=== PATIENT | male | born 1970 | race Caucasian/White ===

== ENCOUNTER 2017-08-30 09:06 | Emergency (ER) | payer OTHER, SELFPAY ==
[2017-08-30 09:07] VITALS: BP 148/97; PULSE 78; RESP 16; TEMP 37; O2SAT 95; BMI 31.1
--- NOTE | 2017-08-30 09:22 | RAD_ITS ---
STUDY: X-RAY - PELVIS AND LEFT HIP REASON FOR EXAM: Male, 46 years old. Left hip pain and left groin pain. TECHNIQUE: Radiological exam, hip, unilateral, with pelvis when performed; 2 or 3 views. COMPARISON: None. FINDINGS: There is a non-specific bowel gas pattern. Normal visualized soft tissue structures. Normal bilateral iliac wings, sacroiliac joints and visualized sacrum. Normal bilateral superior and inferior pubic rami. Normal pubic symphysis. Normal bilateral ischial tuberosities. Normal visualized femoral head. There is osteoarthritic spur formation of the acetabular rim. There is mild articular joint space narrowing of the hip. RAD/Hip 2-3 Views with Pelvis IMPRESSION: Mild degree of osteoarthritis of the hip joints bilaterally. Electronically Signed: Eric Lazo MD at 11:11 EST Tel [phone], Service support ,
--- NOTE | 2017-08-30 09:23 | US_ITS ---
STUDY: SCROTUM ULTRASOUND REASON FOR EXAM: Male, 46 years old. Left testicular and left groin pain. TECHNIQUE: Ultrasound evaluation of the scrotum was performed with color Doppler and static white-scale imaging. COMPARISON: None. FINDINGS: RIGHT TESTICLE INTRATESTICULAR: There is a normal size of the right testicle. The right testicle measures 4.2 cm x 3.2 cm x 2.3 cm. There is a homogenous echotexture. There is normal arterial and normal venous vascularity. There is no demonstrated right testicular mass or cyst. EXTRATESTICULAR: The epididymis is normal in size. The epididymis head measures 0.9 cm x 0.9 cm x 1.0 cm. There is normal vascularity of the epididymis. There is a well-defined cystic structure within the epididymis, without internal echoes, consistent with an epididymal cyst. This measures 4 mm x 3 mm x 2 mm. There is no demonstrated hydrocele. There is no demonstrated varicocele. There is no demonstrated extratesticular mass or cyst. LEFT TESTICLE INTRATESTICULAR: There is a normal size of the left testicle. The left testicle measures 4.3 cm x 3.1 cm x 2.3 cm. There is a homogenous echotexture. There is normal arterial and normal venous vascularity. There is no demonstrated left testicular mass or cyst. EXTRATESTICULAR: The epididymis is normal in size. The epididymis head measures 1.1 cm x 1.0 cm x 0.9 cm. There is normal vascularity of the epididymis. There is a well-defined cystic structure within the epididymis, without internal echoes, consistent with an epididymal cyst. This measures 4 mm x 3 mm x 3 mm. There is a small hydrocele. There is no demonstrated varicocele. There is no demonstrated extratesticular mass or cyst. US/Testicular with Arterial Flow IMPRESSION: Small bilateral epididymal cysts. Small left hydrocele. Electronically Signed: Eric Lazo MD at 10:46 EST Tel [phone], Service support ,
--- NOTE | 2017-08-30 09:26 | ED.VISSUMM ---
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 He did not fall he has no history of hip pelvic bone element no elements. Does report he seems to be urinating more frequently this occurred, he had no direct trauma he has no history other than report years ago he had a stone in his kidney. He has no back pain nausea vomiting or fever he points directly to his left groin inguinal crease he has not noticed any bulging of fullness the pain seems to improve when he rests his bowel and bladder habits otherwise unremarkable Physical Examination: [] Signs are unremarkable neck chest unremarkable the abdomen soft nontender the left groin he has some very mild pain to the left groin there is no obvious hernia the scrotum is not tender he complains that however the pain from the groin shoots into the left scrotum by palpation of the scrotum shows no areas of tenderness fullness or mass no obvious signs of torsion or infection the scrotal sac is unremarkable to inspection and palpation as of the testicles, again no hernia the back is unremarkable he has full range of motion of the hip knee ankle and foot he is able to walk and has some discomfort when he walks in the left inguinal groin area and again most of his pain is directly over the left inguinal crease The patient's UA is generally unremarkable dip hematuria no red cells, x-ray of the pelvis is unremarkable, scrotal ultrasound are unremarkable for any acute issues see those reports Thank the patient that the exact etiology of the groin pain is unclear it clearly began when he jolted his leg stepping off the curb as above, he will be started on Naprosyn, he is given a referral to orthopedics, [place] [facility] for further follow-up and return for change in symptoms, he understands he will require definitive outpatient management to diagnose and manage his condition Test Results: [] Emergency Department Course and Treatment: [] Treatment Plan: [] Disposition: [] Stable home Impression: [] Left groin pain after near fall This note was generated with Dragon dictation software. It may contain incorrect words, spelling, and punctuation that were not noted in review of the chart prior to signing ED Disposition - Plan for ED Patient: Chief Complaint: Male Pain/Injury Referrals: Care Physician,No Primary [Primary Care Provider] -
[2017-08-30 09:49] LABS: Mucous, Urine 0 SEEN /hpf (<or=2+); Red Blood Cells-Urine 0 SEEN /hpf (0-5); Squamous Epithelial Cells - UA 0 SEEN /hpf (0-5); White Blood Cells 0 SEEN /hpf (0-5)
[2017-08-30 09:53] LABS: Color, Urine Yellow (Yellow); Glucose, Dipstick Normal (Normal); Ketone-Dipstick Negative (Negative); Leukocyte Esterase-Dipstick Negative /ul (Negative); Nitrite-Dipstick Negative (Negative); Occult Blood-Urine 25 /ul (Negative); Protein-Dipstick Negative (Negative); Urine Bilirubin Dipstick Negative (Negative); Urine Clarity Clear (Clear); Urine Urobilinogen Normal (Normal)
[2017-08-30 10:03] LABS: Bacteria RARE /hpf (None Seen)
--- NOTE | 2017-08-30 11:17 | ED.DEP ---
ED Disposition - Plan for ED Patient: Chief Complaint: Male Pain/Injury Instructions: ED Hernia Inguinal, ED Muscle Pain Leg Cramps Prescriptions: Naproxen [Naprosyn] 500 mg PO BID PRN #20 tab Referrals: Care Physician,No Primary [Primary Care Provider] - Prabha Regan MD [COURTESY STAFF PHYSICIAN] - Adiel Thomason DO [STAFF PHYSICIAN] -
[2017-08-30 11:22] VITALS: BP 140/93; PULSE 66; RESP 18; O2SAT 95
--- NOTE | 2017-08-30 11:29 | ED.DEP ---
ED Disposition - Plan for ED Patient: Chief Complaint: Male Pain/Injury Instructions: ED Hernia Inguinal, ED Muscle Pain Leg Cramps Prescriptions: Naproxen [Naprosyn] 500 mg PO BID PRN #20 tab Potassium Chloride [K-Dur] 10 meq PO BID #60 tab Referrals: Adiel Thomason DO [STAFF PHYSICIAN] - Prabha Regan MD [COURTESY STAFF PHYSICIAN] - Care Physician,No Primary [Primary Care Provider] -
[2017-08-30 11:40] VITALS: BP 140/93; PULSE 66; RESP 18
== END 2017-08-30 11:40 | disposition home or self-care (01) ==
PROVIDERS: Emergency Provider Emergency Medicine
DX: R10.32 Left lower quadrant pain (principal)
CPT/HCPCS: 73502; 76870; 81001; 93976; 99283

== ENCOUNTER 2017-12-17 23:59 | Observation (INO) | payer OTHER, SELFPAY ==
[2017-12-18] VITALS: BP 153/82; PULSE 77; RESP 15; TEMP 36.6; BMI 30.8
--- NOTE | 2017-12-18 00:15 | CT_ITS ---
STUDY: CT ABDOMEN AND PELVIS WITH CONTRAST REASON FOR EXAM: Male, 47 years old. Abdominal pain. History of Crohn's disease. RADIATION DOSAGE (If Supplied By Facility): CTDIvol = ( 15.57 ) mGy, DLP = ( 1208.64 ) mGycm TECHNIQUE: Transaxial images were obtained from the dome of the diaphragm to the symphysis pubis without oral contrast. 100 ml of Isovue 300 contrast was administered. Sagittal and coronal images were reconstructed. Individualized dose optimization techniques were used for this CT. COMPARISON: None. FINDINGS: The lung bases are clear. The liver is normal with no dilated intrahepatic biliary radicles. The gallbladder is normal with no gallstones and no pericholecystic fluid collection or streakiness. The spleen, pancreas and both adrenals are normal. The kidneys are normal with no masses, calculi or hydronephrosis. The stomach is normal. There is a previous surgery in the right lower quadrant with resection of the cecum and portions of the ascending colon. There is narrowing of the ileocolic anastomosis with subsequent distention of small bowel. The obstruction looks partial. Similar findings were observed in the last examination of August 16, 2013. The abdominal wall is intact. There is no ascites, free intraperitoneal air or any evidence of epiploic appendagitis. The vascular structures in the retroperitoneum are normal The bones and joints seen are normal with no osteolytic or osteoblastic changes There is no retrocrural, retroperitoneal or mesenteric adenopathy. There is no mesenteric mistiness The urinary bladder is normal.. The prostate is normal. There is no inguinal or pelvic adenopathy and there is no inguinal hernia . CT/Abdomen/Pelvis WITH Contrast IMPRESSION: A partial small bowel obstruction with a change in caliber of small bowel in the right lower quadrant at an ileocolic anastomotic site. Similar findings were seen in the last examination of August 18, 2013 No acute diverticulitis Electronically Signed: Vincent Fernando, at 3:39 EDT Tel , Service support ,
[2017-12-18] MEDS: 0.9% Normal Saline 1,000 ML 125 ML IV ×2 (00:50→06:19)
[2017-12-18] MEDS: Morphine 4 MG/ML Syringe IV ×2 (00:55→06:19)
[2017-12-18] MEDS: Ondansetron 4 MG/2 ML Vial IV (00:55)
[2017-12-18 01:04] LABS: Absolute Lymphocyte Count 1.95 X10^3/ul (0.83-4.51); Basophil# 0.02 X10^3/uL; Basophil% 0.1 % (0-1); Eosinophil# 0.07 X10^3/uL; Eosinophils% 0.5 % (0-5); Hematocrit 44.5 % (40-54); Hemoglobin 15.6 g/dl (13.0-16.5); Lymphocyte # 1.95 X10^3/ul (4.0); Lymphocyte % 13.2 % (19-41); Mean Corp Hgb Conc 35.1 g/gl (32-36); Mean Corpuscular Hgb 30.5 pg (27.0-32.0); Mean Corpuscular Volume 86.9 fL (80-94); Mean Platelet Vol. 8.9 fl (6.2-12.0); Monocyte# 0.77 X10^3/uL; Monocyte% 5.2 % (0-10); Neutrophil # 11.96 X10^3/uL (2.7-7.7); Neutrophil % 80.8 % (47-70); Platelet Count 262 K/mm3 (150-450); RBC Distribution Width CV 13.2 % (11.6-14.6); RBC Distribution Width SD 41.9 fl (35.1-43.9); Red Blood Count 5.12 M/mm3 (4.6-6.2); White Blood Count 14.8 K/mm3 (4.4-11.0)
[2017-12-18 01:07] LABS: POSITIVE COUNT NO; POSITIVE DIFFERENTIAL NO; POSITIVE MORPHOLOGY NO
[2017-12-18 01:19] LABS: AST(SGOT) 16 U/L (15-37); Alanine Aminotransfer ALT/SGPT 25 U/L (16-61); Albumin, Serum 3.9 g/dL (3.2-5.0); Alkaline Phosphatase 78 U/L (45-117); Anion Gap 8 (5-15); BUN 10 mg/dL (7-18); BUN/Creat Ratio 9.9 RATIO (10-20); Calcium,Total 9.1 mg/dL (8.5-10.1); Chloride 106 mmol/L (98-107); Creatinine, Serum 1.01 mg/dL (0.70-1.30); EST Glomerular Filtration Rate 84 mL/min (>60); Est Glom Filt Rate - Afr Amer 102 mL/min (>60); Estimated Creatinine Clearance 93.36 ml/min; Globulin 3.9 g/dL (2.2-4.2); Glucose 113 mg/dL (74-106); Lipase 91 U/L (73-393); Potassium 3.8 mmol/L (3.5-5.1); Protein, Total 7.8 g/dL (6.4-8.2); Sodium Level 140 mmol/L (136-145)
[2017-12-18 01:45] VITALS: BP 135/86; PULSE 77; RESP 16; O2SAT 95
[2017-12-18] MEDS: HYDROmorphone 1 MG/ML Syringe IV ×2 (01:51→07:29)
[2017-12-18 01:56] LABS: Bacteria 0 SEEN /hpf (None Seen); Mucous, Urine 0 SEEN /hpf (<or=2+); Red Blood Cells-Urine 0 SEEN /hpf (0-5); Squamous Epithelial Cells - UA 0 SEEN /hpf (0-5); White Blood Cells 0 SEEN /hpf (0-5)
[2017-12-18 02:06] LABS: Color, Urine Yellow (Yellow); Glucose, Dipstick Normal (Normal); Ketone-Dipstick Negative (Negative); Leukocyte Esterase-Dipstick Negative /ul (Negative); Nitrite-Dipstick Negative (Negative); Occult Blood-Urine 10 /ul (Negative); Protein-Dipstick Negative (Negative); Urine Bilirubin Dipstick Negative (Negative); Urine Clarity Clear (Clear); Urine Urobilinogen Normal (Normal)
--- NOTE | 2017-12-18 03:56 | ED.DCSUM_ITS ---
- ER Visit Summary Date of Service: 12/18/17 Chief Complaint: [Abdominal pain] History of Present Illness: The patient is a 47 M [presents with abdominal pain that started around 5 hours ago. Patient describes it as right-sided and he has had 3 episodes of vomiting. Patient denies any blood in his stool or black tarry stool. Patient denies urinary symptoms. Patient believes he is having a flareup of his Crohn's disease. His last flareup was about a year ago. Patient denies any fevers.] Physical Examination: [HEENT-PERRLA, EOMI. Cranial nerves II through XII grossly intact. TMs clear. Mucous membranes moist. No adenopathy. Cardiovascular-regular rate and rhythm without murmur or ectopy Lungs-clear to auscultation, chest wall stable without crepitus or subcu emphysema Abdomen-normoactive bowel sounds, soft. Patient has tenderness over the right side of the abdomen diffusely. There is no rebound, rigidity, or perineal signs. Extremities-intact ?4, normal range of motion, normal pulses, atraumatic] Test Results: [CBC with differential obtained showed a white blood cell count of 14.8, hemoglobin 15.6, hematocrit 44, platelets 262. Chemistries unremarkable. Total bilirubin was 1.3. Lipase was 91. Urinalysis was unremarkable. CT scan of the abdomen pelvis showed a partial small bowel obstruction with change in caliber of small bowel in the right lower quadrant at the ileocolic anastomotic site similar findings were seen in the last exam of July 2013] Emergency Department Course and Treatment: [Patient was medicated with Dilaudid and Zofran IV and patient was discussed with hospitalist will evaluate patient for admission] Treatment Plan: [Admit for IV fluids and pain control] Disposition: [Admit] Impression: [Abdominal pain Partial small bowel obstruction] This note was generated with [employer] dictation software. It may contain incorrect words, spelling, and punctuation that were not noted in review of the chart prior to signing ED Disposition - Plan for ED Patient: Chief Complaint: Abd Pain Referrals: Raul Cox III, MD [Primary Care Provider] -
[2017-12-18 03:59] VITALS: BP 126/83; PULSE 77; RESP 16; TEMP 36.6; O2SAT 95
[2017-12-18 04:06] VITALS: BP 126/83; PULSE 77; RESP 16; O2SAT 95
[2017-12-18 04:24] VITALS: BMI 31.2
[2017-12-18 04:48] VITALS: BP 125/76; PULSE 70; RESP 18; TEMP 36.6; O2SAT 95
--- NOTE | 2017-12-18 05:35 | PCM.HP.STD ---
Problem List (1) SBO (small bowel obstruction) Status: Acute (2) Diverticulitis Status: Acute (3) Crohn's disease of small and large intestines Status: Chronic (4) HTN (hypertension) Status: Chronic History of Present Illness Date of Admission: 12/18/17 Chief Complaint: Partial small bowel obstruction The patient is a 47 year old male w/ h/o crohn's disease admitted for SBO. He developed sudden right sided abdominal pain 5 hours ago. Pain was constant and dull-aching / crampy pain. Nothing made it better or worse. Pain was severe. No radiation of pain. Pain was not associated with any other symptoms. Pt had 3 episodes of n/v which improved by the time pt arrived in the ED. No blood stool. No fever, tachycardia, abdominal tenderness, and no signs or symptoms of obstruction. Past Medical History Past Medical History (Chronic Problems): Chronic Problems HTN (hypertension) (Chronic) Crohn's disease of small and large intestines (Chronic) Allergies prednisone Allergy (Verified 12/18/17 00:02) Vomiting diphenhydramine HCl [From Benadryl] Adverse Reaction (Verified 12/18/17 00:02) Other Home Medications: Ambulatory Orders Medication Instructions Recorded Diltiazem HCl [Cartia Xt] 240 mg PO DAILY 12/18/17 Potassium Chloride 10 meq PO BID 12/18/17 Sertraline HCl [Zoloft] 50 mg PO DAILY 12/18/17 Surgical History: - - Small bowel resection Psychiatric History: No pertinent psych hx Lives: Alone Smoking Status: Never smoker Alcohol: None Drugs: None - *Family History Maternal History Items: No pertinent history Review of Systems Constitutional: Denies: Chills, Fever, Weight Change HEENT: Denies: Head Aches, Sinus Congestion, Sinus Drainage Cardiovascular: Denies: Chest Pain, Palpitations Respiratory: Denies: Cough, Shortness of breath at rest, Sputum production Gastrointestinal: Reports: Abdominal Pain, Nausea, Vomiting Genitourinary: Denies: Dysuria Musculoskeletal: Denies: Joint Pain, Joint Tenderness Skin: Denies: Rash, Wounds Neurological: Denies: Numbness, Tingling, Focal weakness Psychiatric: Denies: Anxiety, Depression, Homicidal Ideations, Suicidal Ideations Hematologic/ Lymphatic: Denies: Easy Bruising, Easy Bleeding VTE Information - Inpt Only VTE Present on Admission: No VTE Mechan Device Prophylaxis: SCD's VTE Pharm Prophylaxis ordered?: Yes Patient Problems: Active and Suspected Problems SBO (small bowel obstruction) (Acute) - Physical Exam General: Alert, Oriented x3, Cooperative HEENT: Atraumatic, PERRLA, EOMI, Normocephalic Neck: Supple, No JVD, Negative Carotid Bruits Lungs: Clear to auscultation, Normal air movement Cardiovascular: Regular rate, No murmurs Abdomen: Bowel Sounds Present, Soft, Non Tender Extremities: No edema, Capillary Refill Less than 3 Seconds Skin: No rashes, No breakdown Musculoskeletal: No Tenderness to Palpation of Joints or Extremities Neurological: Cranial nerves II-XII grossly intact Psych/Mental Status: Normal Affect, Appropriate Vital Signs Temp Pulse Resp BP Pulse Ox 98 F 70 18 125/76 H 95 12/18/17 04:48 12/18/17 04:48 12/18/17 04:48 12/18/17 04:48 12/18/17 04:48 Oxygen Delivery Method Room Air Weight: 98.747 kg Body Mass Index (BMI) 31.2 Assessment/Plan All Active Problems SBO (small bowel obstruction) (Acute) Diverticulitis (Acute) 47 year old male w/ h/o crohn's disease admitted for SBO. 1) Partial SBO: CT disclosed A partial small bowel obstruction with a change in caliber of small bowel in the right lower quadrant at an ileocolic anastomotic site. Similar findings were seen in the last examination of August 18, 2013. H/o bowel resection noted. NPO. IVF hydration. NGT probably not necessary at this time given symptoms have much improved. 2) Crohn's disease: No <10 percent weight loss and no symptoms of systemic disease such as fever, tachycardia, and no guarding or rebound. Will start mesalamine 1gm PO 4 times daily. Will consider Budesonide starting at 9 mg per day for at least four weeks given allergy to prednisone if no improvement. No e/o diffuse colitis. 3) HTN: Resume home meds. 4) Prophylaxis: SCD / heparin.
[2017-12-18 06:39] LABS: Absolute Lymphocyte Count 1.85 X10^3/ul (0.83-4.51); Absolute Neutrophil Count 8.6 X10^3/uL (2.0-7.7); Basophil# 0.01 X10^3/uL; Basophil% 0.1 % (0-1); Eosinophil# 0.02 X10^3/uL; Eosinophils% 0.2 % (0-5); Hematocrit 44.4 % (40-54); Lymphocyte # 1.85 X10^3/ul (4.0); Lymphocyte % 15.8 % (19-41); Mean Corp Hgb Conc 33.8 g/gl (32-36); Mean Corpuscular Hgb 29.8 pg (27.0-32.0); Mean Corpuscular Volume 88.1 fL (80-94); Monocyte# 1.18 X10^3/uL; Monocyte% 10.1 % (0-10); Neutrophil # 8.63 X10^3/uL (2.7-7.7); Neutrophil % 73.7 % (47-70); Platelet Count 262 K/mm3 (150-450); RBC Distribution Width CV 13.3 % (11.6-14.6); Red Blood Count 5.04 M/mm3 (4.6-6.2); White Blood Count 11.7 K/mm3 (4.4-11.0)
[2017-12-18 06:44] LABS: POSITIVE COUNT NO; POSITIVE DIFFERENTIAL NO; POSITIVE MORPHOLOGY NO
[2017-12-18] MEDS: Heparin Injection (Vial) 5,000 UNIT/ML VIAL 5000 UNIT SC (06:52)
[2017-12-18 07:00] LABS: Anion Gap 8 (5-15); BUN 8 mg/dL (7-18); BUN/Creat Ratio 8.2 RATIO (10-20); Calcium,Total 8.6 mg/dL (8.5-10.1); Chloride 106 mmol/L (98-107); Creatinine, Serum 0.98 mg/dL (0.70-1.30); EST Glomerular Filtration Rate 87 mL/min (>60); Est Glom Filt Rate - Afr Amer 106 mL/min (>60); Estimated Creatinine Clearance 96.22 ml/min; Glucose 121 mg/dL (74-106); Sodium Level 141 mmol/L (136-145)
[2017-12-18 07:07] LABS: Amphetamine Urine VISTA NEGATIVE (<1000 ng/mL); Barbiturate Urine VISTA NEGATIVE (< 200 ng/mL); Benzodiazepine Urine VISTA NEGATIVE (< 200 ng/mL); Cocaine Urine VISTA NEGATIVE (< 300 ng/mL); Ecstacy Urine VISTA NEGATIVE (< 500 ng/mL); Methadone Urine VISTA NEGATIVE (< 300 ng/mL); PCP Urine VISTA NEGATIVE (< 25 ng/mL); THC Urine VISTA NEGATIVE (< 50 ng/mL); Vista UDS pH Range 6
[2017-12-18] MEDS: 0.9% NaCl Peripheral Flush Adult/Peds IV (07:29)
[2017-12-18] MEDS: Sertraline 50 MG Tablet PO (09:07)
[2017-12-18] MEDS: dilTIAZem CD 240 MG Capsule PO (09:07)
[2017-12-18] MEDS: Mesalamine 1.2 GM Tablet 2.4 GM PO (09:37)
--- NOTE | 2017-12-18 10:58 | PCM.CONS.GEN ---
Reason for Consult Date of Consultation: 12/18/17 History of Present Illness: The patient is a 47 year old M who presents with complaints of abdominal distention and nausea with vomiting. The patient noted nausea and vomiting 3 times prior to presentation to emergency department. When he presented emergency department, he laboratory studies obtained which demonstrated a mildly elevated white blood cell count. CT scan of the abdomen and pelvis was obtained. This demonstrated: IMPRESSION: A partial small bowel obstruction with a change in caliber of small bowel in the right lower quadrant at an ileocolic anastomotic site. Similar findings were seen in the last examination of August 18, 2013 No acute diverticulitis the patient has a previous history of Crohn's disease. He underwent an ileocecal resection in the ,-, he states partially 20 years previously.-At [facility]. The patient has been on 5 ASA products in the past. He states he has side effects to steroid infusions and Flagyl. He has not been on any medications for his Crohn's for some time. He underwent colonoscopy in 2012 performed at the [facility] by Dr. Noé Garrison, which demonstrated a clean anastomosis and no other abnormalities. November 2013, he had an upper GI small bowel follow-through at [facility] demonstrated- FINDINGS: The esophagus is unremarkable. There is no evidence of obstruction. No gastroesophageal reflux is seen. The stomach and duodenum are unremarkable. A small bowel follow-through examination was then performed. The small bowel transit is normal. There is no evidence of intrinsic or extrinsic small bowel disease. The terminal ileum is unremarkable. the patient notes recurrent partial small bowel obstructions. He states he's happen about twice a year. These usually last a couple of days and his opinion. He states he already feels like his abdominal cramping is improving and that liquid is starting to move. Past Medical History Past Medical History (Chronic Problems): Chronic Problems HTN (hypertension) (Chronic) Crohn's disease of small and large intestines (Chronic) Allergies prednisone Allergy (Verified 12/18/17 00:02) Vomiting diphenhydramine HCl [From Benadryl] Adverse Reaction (Verified 12/18/17 00:02) Other Home Medications: Ambulatory Orders Medication Instructions Recorded Diltiazem HCl [Cartia Xt] 240 mg PO DAILY 12/18/17 Potassium Chloride 10 meq PO BID 12/18/17 Sertraline HCl [Zoloft] 50 mg PO DAILY 12/18/17 Surgical History: - - ileocecal resection for active Crohn's disease-[facility]- Psychiatric History: Anxiety Lives: Alone Smoking Status: Never smoker Alcohol: None Drugs: None - *Family History Maternal History Items: No pertinent history Review of Systems Constitutional: Denies: Chills, Fever, Weight Change HEENT: Denies: Head Aches, Sinus Congestion, Sinus Drainage Cardiovascular: Denies: Chest Pain, Palpitations Respiratory: Denies: Cough, Shortness of breath at rest, Sputum production Gastrointestinal: Reports: Abdominal Pain, Nausea, Vomiting Genitourinary: Denies: Dysuria Musculoskeletal: Denies: Joint Pain, Joint Tenderness Skin: Denies: Rash, Wounds Neurological: Denies: Numbness, Tingling, Focal weakness Psychiatric: Denies: Anxiety, Depression, Homicidal Ideations, Suicidal Ideations Hematologic/ Lymphatic: Denies: Easy Bruising, Easy Bleeding Patient Problems: Active and Suspected Problems SBO (small bowel obstruction) (Acute) - Physical Exam Vital Signs Temp Pulse Resp BP Pulse Ox 98 F 70 18 125/76 H 95 12/18/17 04:48 12/18/17 04:48 12/18/17 04:48 12/18/17 04:48 12/18/17 04:48 Oxygen Delivery Method Room Air Weight: 98.747 kg Body Mass Index (BMI) 31.2 Laboratory Tests Past 24 Hrs 12/18/17 12/18/17 12/18/17 06:12 06:12 06:40 WBC 11.7 H RBC 5.04 Hgb 15.0 Hct 44.4 MCV 88.1 MCH 29.8 MCHC 33.8 RDW 13.3 RDW Differential 43.0 Plt Count 262 MPV 9.0 Immature Gran % (Auto) 0.100 Neut % (Auto) 73.7 H Lymph % (Auto) 15.8 L Knott % (Auto) 10.1 H Eos % (Auto) 0.2 Baso % (Auto) 0.1 Absolute Neuts (auto) 8.6 H Absolute Lymphs (auto) 1.85 Total Counted Not Reportable Sodium 141 Potassium 4.0 Chloride 106 Carbon Dioxide 27.0 Anion Gap 8 BUN 8 Creatinine 0.98 Estim Creat Clear Calc 96.22 Est GFR (MDRD) Af Amer 106 Est GFR (MDRD) Non-Af 87 BUN/Creatinine Ratio 8.2 L Glucose 121 H Calcium 8.6 Urine Opiates Screen POSITIVE H Urine Methadone Screen NEGATIVE Ur Barbiturates Screen NEGATIVE Ur Phencyclidine Scrn NEGATIVE Ur Amphetamines Screen NEGATIVE U Methamphetamin-MDMA NEGATIVE U Benzodiazepines Scrn NEGATIVE Urine Cocaine Screen NEGATIVE U Cannabinoids Screen NEGATIVE Ur Drug Screen Comment Assessment/Plan All Active Problems SBO (small bowel obstruction) (Acute) Diverticulitis (Acute) nausea, vomiting, small bowel obstruction-history of Crohn's disease Review of the CT scan demonstrates small bowel distention with just partial flow of contrast from the proximal small bowel. The distal small bowel with small bowel distention pretty much all the way to the anastomosis. I don't truly see any thickening or peribowel inflammation consistent with active Crohn's disease, [place] a very small segment of small bowel near the anastomosis that looks somewhat thickened versus postsurgical changes in the area. when comparing the current CAT scan of the CAT scan from July 2013, I still see a very small segment of small bowel which does look thickened. currently, I recommend supportive treatment with IV fluids and maintain nothing by mouth status. I repeat KUB in the morning to assess for progress of the contrast and follow him clinically. I would consider starting a oral 5-ASA product if he seems slow to improve from a suspected small bowel obstruction
--- NOTE | 2017-12-18 11:09 | CON.PCM_ITS ---
Reason for Consult Date of Consultation: 12/18/17 History of Present Illness: The patient is a 47 year old M who presents with complaints of abdominal distention and nausea with vomiting. The patient noted nausea and vomiting 3 times prior to presentation to emergency department. When he presented emergency department, he laboratory studies obtained which demonstrated a mildly elevated white blood cell count. CT scan of the abdomen and pelvis was obtained. This demonstrated: IMPRESSION: A partial small bowel obstruction with a change in caliber of small bowel in the right lower quadrant at an ileocolic anastomotic site. Similar findings were seen in the last examination of August 18, 2013 No acute diverticulitis the patient has a previous history of Crohn's disease. He underwent an ileocecal resection in the ,-, he states partially 20 years previously.-At [facility]. The patient has been on 5 ASA products in the past. He states he has side effects to steroid infusions and Flagyl. He has not been on any medications for his Crohn's for some time. He underwent colonoscopy in 2012 performed at the [facility] by Dr. Noé Garrison, which demonstrated a clean anastomosis and no other abnormalities. November 2013, he had an upper GI small bowel follow-through at [facility] demonstrated- FINDINGS: The esophagus is unremarkable. There is no evidence of obstruction. No gastroesophageal reflux is seen. The stomach and duodenum are unremarkable. A small bowel follow-through examination was then performed. The small bowel transit is normal. There is no evidence of intrinsic or extrinsic small bowel disease. The terminal ileum is unremarkable. the patient notes recurrent partial small bowel obstructions. He states he's happen about twice a year. These usually last a couple of days and his opinion. He states he already feels like his abdominal cramping is improving and that liquid is starting to move. Past Medical History Past Medical History (Chronic Problems): Chronic Problems HTN (hypertension) (Chronic) Crohn's disease of small and large intestines (Chronic) Allergies prednisone Allergy (Verified 12/18/17 00:02) Vomiting diphenhydramine HCl [From Benadryl] Adverse Reaction (Verified 12/18/17 00:02) Other Home Medications: Ambulatory Orders Medication Instructions Recorded Diltiazem HCl [Cartia Xt] 240 mg PO DAILY 12/18/17 Potassium Chloride 10 meq PO BID 12/18/17 Sertraline HCl [Zoloft] 50 mg PO DAILY 12/18/17 Surgical History: - - ileocecal resection for active Crohn's disease-[facility]- Psychiatric History: Anxiety Lives: Alone Smoking Status: Never smoker Alcohol: None Drugs: None - *Family History Maternal History Items: No pertinent history Review of Systems Constitutional: Denies: Chills, Fever, Weight Change HEENT: Denies: Head Aches, Sinus Congestion, Sinus Drainage Cardiovascular: Denies: Chest Pain, Palpitations Respiratory: Denies: Cough, Shortness of breath at rest, Sputum production Gastrointestinal: Reports: Abdominal Pain, Nausea, Vomiting Genitourinary: Denies: Dysuria Musculoskeletal: Denies: Joint Pain, Joint Tenderness Skin: Denies: Rash, Wounds Neurological: Denies: Numbness, Tingling, Focal weakness Psychiatric: Denies: Anxiety, Depression, Homicidal Ideations, Suicidal Ideations Hematologic/ Lymphatic: Denies: Easy Bruising, Easy Bleeding Patient Problems: Active and Suspected Problems SBO (small bowel obstruction) (Acute) - Physical Exam Vital Signs Temp Pulse Resp BP Pulse Ox 98 F 70 18 125/76 H 95 12/18/17 04:48 12/18/17 04:48 12/18/17 04:48 12/18/17 04:48 12/18/17 04:48 Oxygen Delivery Method Room Air Weight: 98.747 kg Body Mass Index (BMI) 31.2 Laboratory Tests Past 24 Hrs 12/18/17 12/18/17 12/18/17 06:12 06:12 06:40 WBC 11.7 H RBC 5.04 Hgb 15.0 Hct 44.4 MCV 88.1 MCH 29.8 MCHC 33.8 RDW 13.3 RDW Differential 43.0 Plt Count 262 MPV 9.0 Immature Gran % (Auto) 0.100 Neut % (Auto) 73.7 H Lymph % (Auto) 15.8 L Norton % (Auto) 10.1 H Eos % (Auto) 0.2 Baso % (Auto) 0.1 Absolute Neuts (auto) 8.6 H Absolute Lymphs (auto) 1.85 Total Counted Not Reportable Sodium 141 Potassium 4.0 Chloride 106 Carbon Dioxide 27.0 Anion Gap 8 BUN 8 Creatinine 0.98 Estim Creat Clear Calc 96.22 Est GFR (MDRD) Af Amer 106 Est GFR (MDRD) Non-Af 87 BUN/Creatinine Ratio 8.2 L Glucose 121 H Calcium 8.6 Urine Opiates Screen POSITIVE H Urine Methadone Screen NEGATIVE Ur Barbiturates Screen NEGATIVE Ur Phencyclidine Scrn NEGATIVE Ur Amphetamines Screen NEGATIVE U Methamphetamin-MDMA NEGATIVE U Benzodiazepines Scrn NEGATIVE Urine Cocaine Screen NEGATIVE U Cannabinoids Screen NEGATIVE Ur Drug Screen Comment Assessment/Plan All Active Problems SBO (small bowel obstruction) (Acute) Diverticulitis (Acute) nausea, vomiting, small bowel obstruction-history of Crohn's disease Review of the CT scan demonstrates small bowel distention with just partial flow of contrast from the proximal small bowel. The distal small bowel with small bowel distention pretty much all the way to the anastomosis. I don't truly see any thickening or peribowel inflammation consistent with active Crohn' s disease, [place] a very small segment of small bowel near the anastomosis that looks somewhat thickened versus postsurgical changes in the area. when comparing the current CAT scan of the CAT scan from July 2013, I still see a very small segment of small bowel which does look thickened. currently, I recommend supportive treatment with IV fluids and maintain nothing by mouth status. I repeat KUB in the morning to assess for progress of the contrast and follow him clinically. I would consider starting a oral 5-ASA product if he seems slow to improve from a suspected small bowel obstruction
--- NOTE | 2017-12-18 11:24 | PCM.DC ---
- Discharge Diagnoses Current Active Problems: Current Active and Chronic Problems SBO (small bowel obstruction) (Acute) You will use the following diet at home:: Full liquid - Stick to a full liquid diet and advance to a low residue diet as tolerated. would stick to the low residue diet for the next 7-10 days at least. You may want to stick to a low residue diet indefinitely because of the narrowed segment of bowel near the surgical anastomosis.....If you are eating a high fiber diet the fiber may get hung up at this narrowed area. Your food should be the consistency of: Regular Your liquids should be the consistency of: Regular/Thin Discharge Activity: May not drive while taking narcotic pain medications. May resume sexual activity in: No Restrictions Weight Bearing Status: Full weight bearing Call your doctor if you observe: Fever of 101 or Higher, Inability to have a bowel movement, Uncontrolled pain Instructions: Low-Residue Diet Additional Instructions: Make sure to drink enough water to keep your urine a pale yellow......if you do not drink enough water then you tend to get constipated and this will lead to the partial bowel obstruction again. You never want to get constipated because this will cause you problems.....high fiber may also cause problems because it will not pass smoothly through the narrowed section of bowel. If you start to feel pain in that area cut back to clear liquids until the pain is better and you are having bowel movements and then advance as tolerated to the low residue diet. I have given you a prescription for Percocet to keep at home to deal with the pain.......hopefully this will keep you from having to come to the hospital. If you are having fevers or the Percocet is not controlling the pain OR if the symptoms do not go away in 48-72 hours you will need to come to the hospital. Pending Tests on Discharge: none Allergies/Adverse Reactions: Allergies prednisone Allergy (Verified 12/18/17 00:02) Vomiting diphenhydramine HCl [From Benadryl] Adverse Reaction (Verified 12/18/17 00:02) Other Medications to take at Discharge Diltiazem HCl [Cartia Xt] 240 mg PO DAILY 12/18/17 Oxycodone HCl/Acetaminophen [Percocet 10-325 mg Tablet] 1 tab PO Q4H PRN PRN 7 Days #40 tab 12/18/17 Potassium Chloride 10 meq PO BID 12/18/17 Sertraline HCl [Zoloft] 50 mg PO DAILY 12/18/17 The following prescriptions were given: Oxycodone HCl/Acetaminophen [Percocet 10-325 mg Tablet] 1 tab PO Q4H PRN PRN 7 Days #40 tab PRN Reason: Pain Primary Care Physician: Raul Cox III, MD [Primary Care Provider] - Please follow up with your Primary Care Physician in: 5-7 days Please Follow Up With: Jaime Trujillo MD When: as needed Proposed Discharge Date: 12/18/17
--- NOTE | 2017-12-18 11:39 | PCM.DC.SUM ---
Discharge Date and Diagnosis - Problem List Patient Problems: Active and Suspected Problems Partial small bowel obstruction (Acute) Date of Admission: 12/18/17 Date of Discharge: 12/18/17 - Primary Discharge Diagnosis Active and Suspected Problems Partial small bowel obstruction (Acute) - resolved Acute diverticulitis-ruled out - Secondary Discharge Diagnosis Chronic Problems HTN (hypertension) (Chronic) Crohn's disease of small and large intestines (Chronic) History of small bowel resection secondary to Crohn's disease Anxiety/depression on sertraline Hospital Course and Treatment Imaging Results: Clinical Impression(s) from Imaging Studies Abdomen/Pelvis CT 12/18/17 00:15 IMPRESSION: A partial small bowel obstruction with a change in caliber of small bowel in the right lower quadrant at an ileocolic anastomotic site. Similar findings were seen in the last examination of August 18, 2013 No acute diverticulitis Electronically Signed: Vincent Fernando, at 3:39 EDT Tel , Service support , Dr. Jaime Trujillo MD-[facility] general surgery Operations: None Procedures: None Summary of Care Provided: The patient is a 47 year old M with a PMH of HTN, anxiety/depression on Sertraline, Crohn's disease and hx of a small bowel who presented to the ED at [facility] on 12/18/17 c/o severe RLQ abdominal pain. He denied F/C. He did have 3 episodes of N/V prior to presentation to the ED but had no vomiting after admission to the hospital. The pain was crampy in nature. CT scan of the abdomen showed no perforation and no abscess. There was dilatation of the small bowel proximal to the ileocecal anastomosis. He was afebrile. White blood cell count was elevated at 14.8 with 81% neutrophils however this is most likely secondary to severe pain and not to infection. BMP was unremarkable. He was admitted to the hospital for pSBO and was started on IV fluids and IV pain medication. He was instructed to ambulate in the halls. He was seen in consultation by Dr. Zhang who reviewed the CT scan and did not see any thickening or obinna-bowel inflammation consistent with active Crohn's disease. There is a small segment of small bowel near the anastomosis that looks somewhat thickened but, this was also seen in 2014 and is likely chronic. After ambulating he had a BM. He denied N/V and the pain had resolved. He was tolerating clear liquids. He was discharged home and instructed to stick to a clear/full liquid diet for the next few days and then advance as tolerated to a low residue diet. He will stay on the low residue diet for at least 7-10 days and it may be reasonable to stick to a low residue diet since there is no narrowing of the small intestine near the ileocecal anastomosis. He was given a prescription for Percocet 10/325 mg, #40, and instructed to take 1 p.o. every 4-6 hours as needed for pain. He will follow up with Dr. Cox in the office in 5-[address] Trujillo as needed. Discharge Activity: May not drive while taking narcotic pain medications. May resume sexual activity in: No Restrictions Weight Bearing Status: Full weight bearing Call your doctor if you observe: Fever of 101 or Higher, Inability to have a bowel movement, Uncontrolled pain Home Medications: Medications to take at Discharge Diltiazem HCl [Cartia Xt] 240 mg PO DAILY 12/18/17 Oxycodone HCl/Acetaminophen [Percocet 10-325 mg Tablet] 1 tab PO Q4H PRN PRN 7 Days #40 tab 12/18/17 Potassium Chloride 10 meq PO BID 12/18/17 Sertraline HCl [Zoloft] 50 mg PO DAILY 12/18/17 Following Prescrptions Were Given to Patient: Oxycodone HCl/Acetaminophen [Percocet 10-325 mg Tablet] 1 tab PO Q4H PRN PRN 7 Days #40 tab PRN Reason: Pain Primary Care Physician: Raul Cox III, MD [Primary Care Provider] - Please follow up with your Primary Care Physician in: 5-7 days Please Follow Up With: Jaime Trujillo MD When: as needed Patient Instructions: Low-Residue Diet Disposition: Home Minutes spent on discharge:: 25 Patient Condition:: Good Medical Necessity - Tobacco Use Smoking Status: Never smoker Meaningful Use Info Meaningful Use Diagnoses (Choose all that apply): None applicable Code Visit OBSV E&M: 12656 Observation care discharge
[2017-12-18 11:48] VITALS: BP 113/69; PULSE 69; RESP 18; TEMP 36.4; O2SAT 95
--- NOTE | 2017-12-18 11:51 | DS.PCM_ITS ---
Discharge Date and Diagnosis - Problem List Patient Problems: Active and Suspected Problems Partial small bowel obstruction (Acute) Date of Admission: 12/18/17 Date of Discharge: 12/18/17 - Primary Discharge Diagnosis Active and Suspected Problems Partial small bowel obstruction (Acute) - resolved Acute diverticulitis-ruled out - Secondary Discharge Diagnosis Chronic Problems HTN (hypertension) (Chronic) Crohn's disease of small and large intestines (Chronic) History of small bowel resection secondary to Crohn's disease Anxiety/depression on sertraline Hospital Course and Treatment Imaging Results: Clinical Impression(s) from Imaging Studies Abdomen/Pelvis CT 12/18/17 00:15 IMPRESSION: A partial small bowel obstruction with a change in caliber of small bowel in the right lower quadrant at an ileocolic anastomotic site. Similar findings were seen in the last examination of August 18, 2013 No acute diverticulitis Electronically Signed: Vincent Fernando, at 3:39 EDT Tel , Service support , Dr. Jaime Trujillo MD-[facility] general surgery Operations: None Procedures: None Summary of Care Provided: The patient is a 47 year old M with a PMH of HTN, anxiety/depression on Sertraline, Crohn's disease and hx of a small bowel who presented to the ED at [facility] on 12/18/17 c/o severe RLQ abdominal pain. He denied F/C. He did have 3 episodes of N/V prior to presentation to the ED but had no vomiting after admission to the hospital. The pain was crampy in nature. CT scan of the abdomen showed no perforation and no abscess. There was dilatation of the small bowel proximal to the ileocecal anastomosis. He was afebrile. White blood cell count was elevated at 14.8 with 81% neutrophils however this is most likely secondary to severe pain and not to infection. BMP was unremarkable. He was admitted to the hospital for pSBO and was started on IV fluids and IV pain medication. He was instructed to ambulate in the halls. He was seen in consultation by Dr. Zhang who reviewed the CT scan and did not see any thickening or obinna-bowel inflammation consistent with active Crohn's disease. There is a small segment of small bowel near the anastomosis that looks somewhat thickened but, this was also seen in 2014 and is likely chronic. After ambulating he had a BM. He denied N/V and the pain had resolved. He was tolerating clear liquids. He was discharged home and instructed to stick to a clear/full liquid diet for the next few days and then advance as tolerated to a low residue diet. He will stay on the low residue diet for at least 7-10 days and it may be reasonable to stick to a low residue diet since there is no narrowing of the small intestine near the ileocecal anastomosis. He was given a prescription for Percocet 10/325 mg, #40, and instructed to take 1 p.o. every 4-6 hours as needed for pain. He will follow up with Dr. Cox in the office in 5-[address] Trujillo as needed. Discharge Activity: May not drive while taking narcotic pain medications. May resume sexual activity in: No Restrictions Weight Bearing Status: Full weight bearing Call your doctor if you observe: Fever of 101 or Higher, Inability to have a bowel movement, Uncontrolled pain Home Medications: Medications to take at Discharge Diltiazem HCl [Cartia Xt] 240 mg PO DAILY 12/18/17 Oxycodone HCl/Acetaminophen [Percocet 10-325 mg Tablet] 1 tab PO Q4H PRN PRN 7 Days #40 tab 12/18/17 Potassium Chloride 10 meq PO BID 12/18/17 Sertraline HCl [Zoloft] 50 mg PO DAILY 12/18/17 Following Prescrptions Were Given to Patient: Oxycodone HCl/Acetaminophen [Percocet 10-325 mg Tablet] 1 tab PO Q4H PRN PRN 7 Days #40 tab PRN Reason: Pain Primary Care Physician: Raul Cox III, MD [Primary Care Provider] - Please follow up with your Primary Care Physician in: 5-7 days Please Follow Up With: Jaime Trujillo MD When: as needed Patient Instructions: Low-Residue Diet Disposition: Home Minutes spent on discharge:: 25 Patient Condition:: Good Medical Necessity - Tobacco Use Smoking Status: Never smoker Meaningful Use Info Meaningful Use Diagnoses (Choose all that apply): None applicable Code Visit OBSV E&M: 16665 Observation care discharge
== END 2017-12-18 14:35 | disposition home or self-care (01) ==
LOC: ED 12-18 03:29 → MS3 12-18 04:16
PROVIDERS: Admitting Provider Internal Medicine; Emergency Provider Emergency Medicine; Family Provider Family Medicine; PCP Family Medicine; Visit Provider Internal Medicine
DX: K56.600 Partial intestinal obstruction, unspecified as to cause (principal); I10 Essential (primary) hypertension; K50.10 Crohn's disease of large intestine without complications; K50.00 Crohn's disease of small intestine without complications; F41.9 Anxiety disorder, unspecified; F32.9 Major depressive disorder, single episode, unspecified; Z79.899 Other long term (current) drug therapy
CPT/HCPCS: 36415; 74177; 80048; 80053; 80307; 81001; 83690; 85025; 96372; 96374; 96375; 96376; 99218; 99282; J7030; Q9967; A4216; G0378; J2405

== ENCOUNTER 2019-08-08 01:44 | Observation (INO) | payer OTHER, SELFPAY ==
[2019-08-08] VITALS (7 sets, daily range): BP systolic 114–144; BP diastolic 67–108; PULSE 71–79; RESP 14–18; TEMP 36.7–37; O2SAT 93–96; BMI 30.9; BMI 30.4; BMI 30.5
--- NOTE | 2019-08-08 01:56 | CT_ITS ---
STUDY: CT ABDOMEN AND PELVIS WITHOUT CONTRAST REASON FOR EXAM: Male, 48 years old patient with abdominal pain. History of Crohn''s disease with bowel resection in 1992. History of kidney stones and hypertension. RADIATION DOSAGE (If Supplied By Facility): CTDIvol = ( 10.85 ) mGy, DLP = ( 590.84 ) mGycm TECHNIQUE: Transaxial images were obtained from the dome of the diaphragm to the symphysis pubis without oral contrast, and without intravenous contrast. Sagittal and coronal images were reconstructed. Individualized dose optimization techniques were used for this CT. COMPARISON: CT of the abdomen and pelvis dated December 18, 2017. FINDINGS: The visualized lung bases are unremarkable. The visualized portions of the heart are within normal limits. Normal liver. Normal gallbladder and extrahepatic biliary system. Normal spleen. Normal pancreas. Normal bilateral adrenal glands. Normal right kidney. There is a nonobstructing calculus left renal collecting system measuring about 3 mm in size. There is no evidence for hydronephrosis, hydroureter or radiopaque ureteral calculus. Normal visualized stomach. There is dilated small bowel with maximum transverse dimension of approximately 3.3 cm. The small bowel is fluid-filled. There appears to have been partial resection of the right colon with surgical sutures near the hepatic flexure. Stool is visible primarily within the hepatic flexure. Most of the transverse colon and descending colon are not distended which give the appearance of thickened aceves. There is non-visualization of the appendix. Normal abdominal aorta. Normal inferior vena cava. Normal retroperitoneum. Normal urinary bladder. Normal visualized prostate gland. Normal abdominal wall. Normal osseous structures. CT/Abdomen/Pelvis without Cont IMPRESSION: 1. Findings suggest sequela of small bowel obstruction with transition at the anastomosis with the colon. 2. Nonobstructing left-sided renal calculus. Electronically Signed: Kassy Javier MD at 3:17 EST , Service support ,
--- NOTE | 2019-08-08 01:56 | ED.VIS.GEN ---
History of Present Illness Chief Complaint: Abd Pain Informant: Patient Narrative: Patient stated he thinks he might have a partial small bowel obstruction again. He has had these in the past. Patient stated he started having pain this morning approximately 24 hours ago after he ate tortilla chips. She is having mainly right-sided abdominal cramping. It is continuous and waxes and wanes. It is a sharp pain that comes on and then eases up and then comes back. No home treatment. He has had pain like this in the past. He does not take anything for Crohn's disease but has had chronic Crohn's disease. 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 He had some dry heaves earlier today. He had a bowel bowel movement this morning. He is passing gas. Current severity is moderate. He had a previous surgery on his Crohn's disease greater than 10 years ago removing a small portion of the small bowel and had a re-anastomosis without complication. - Past Medical History (1) Partial small bowel obstruction Status: Acute (2) Crohn's disease of small and large intestines Status: Chronic (3) HTN (hypertension) Status: Chronic (4) Diverticulitis Status: Ruled-out Past Medical History - Allergies and Home Meds Allergies/Adverse Reactions: Allergies prednisone Allergy (Verified 08/08/19 01:44) Vomiting diphenhydramine HCl [From Benadryl] Adverse Reaction (Verified 08/08/19 01:44) Other Primary Care Physician: Raul Cox III, MD [Primary Care Provider] - Prior records reviewed: Yes Past Medical History: - - See problem list Surgical History: - - ileocecal resection for active Crohn's disease-[facility]- Lives: With Family Smoking Status: Never smoker Alcohol: None Drugs: None - Family History Maternal Family History: Reports: No pertinent history Review of Systems General: Denies: Chills, Fever, Sweats Eyes: Denies: Visual changes - bilaterally, Diplopia ENT: Denies: Rhinorrhea, Sore throat Cardiovascular: Denies: Chest pain, Palpitations Respiratory: Denies: Dyspnea, Cough, Dyspnea on exertion Gastrointestinal: Reports: Abdominal pain, Nausea, Vomiting - Dry heave. Denies: Diarrhea, Melena, Hematochezia Genitourinary: Denies: Dysuria, Hematuria, Frequency Musculoskeletal: Denies: Back pain, Extremity Pain Skin: Denies: Rash, Wounds Neurological: Denies: Headache, Weakness, Numbness Physical Exam Vital Signs/Narrative: Vital Signs Temp Pulse Resp BP Pulse Ox 08/08/19 01:46 98.0 F 79 16 144/108 H 95 General: Well nourished, Well developed, No Acute Distress Head: Normocephalic, Atraumatic Eyes: Perrl, EOMI ENT: Moist mucous membranes, No rhinorrhea Neck: Supple, Nontender Cardiovascular: Regular rate, Regular rhythm, No murmurs Respiratory: No distress, CTA bilaterally, Chest nontender Abdomen: Soft, Nondistended, Normal bowel sounds, Tender - Very mild tenderness right mid abdomen. Negative for: Nontender, Guarding, Rebound tenderness, Mass Back: Nontender, Normal Inspection Extremities: Nontender, No edema Skin: Normal color, No rash Neurological: Alert, Oriented x3, Cranial nerves II-XII grossly intact, Normal Strength, Normal Sensation Psychological: Normal affect, Normal Mood Diagnostic/Tx/Re-eval - Medical Decision Making Patient given IV fluids Toradol and Zofran. Lab work and CT abdomen pelvis obtained. Patient felt much better after treatment. Lab work shows a leukocytosis. Patient has had chronic leukocytosis in the past. The rest of his lab work including liver function test and lipase showed no acute abnormalities. CT shows a partial small bowel obstruction picture with transition at his anastomosis. Patient stated this happens to him once a year. He is never had to have an NG tube. He is refusing an NG tube. He is not having any nausea or vomiting. He feels much better after treatment. Discussed with surgery Dr. Morris. At this time I do not think he is having a Crohn's exacerbation. I feel this is just secondary to a bowel obstruction. Patient stated he cannot have steroids as they cause him to have psychosis. Discussed with the hospitalist after surgery. Dr. Morris needed she will follow in consultation. Patient will be admitted. ED Disposition - Plan for ED Patient: Disposition: Acute Care [facility] Diagnosis: Partial small bowel obstruction Referrals: Raul Cox III, MD [Primary Care Provider] -
[2019-08-08 02:01] LABS: Absolute Lymphocyte Count 2.48 X10^3/uL (0.83-4.51); Absolute Neutrophil Count 11.5 X10^3/uL (2.0-7.7); Basophil# 0.05 X10^3/uL; Basophil% 0.3 % (0-1); Eosinophils% 1.3 % (0-5); Hematocrit 50.1 % (40-54); Hemoglobin 16.5 g/dL (13.0-16.5); Lymphocyte # 2.48 X10^3/ul (4.0); Lymphocyte % 16.6 % (19-41); Mean Corp Hgb Conc 32.9 g/dL (32-36); Mean Corpuscular Hgb 29.5 pg (27.0-32.0); Mean Corpuscular Volume 89.6 fL (80-94); Mean Platelet Vol. 9.1 fl (6.2-12.0); Monocyte# 0.69 X10^3/uL; Monocyte% 4.6 % (0-10); NRBC Flagged by Analyzer 0 % (0-5); Neutrophil # 11.48 X10^3/uL (2.7-7.7); Neutrophil % 76.8 % (47-70); Platelet Count 286 K/mm3 (150-450); RBC Distribution Width SD 42.7 fl (35.1-43.9); Red Blood Count 5.59 M/mm3 (4.6-6.2)
[2019-08-08] MEDS: Ketorolac 30 MG/ML Syringe IV (02:09)
[2019-08-08] MEDS: Ondansetron 4 MG/2 ML Vial IV (02:09)
[2019-08-08] MEDS: 0.9% Normal Saline 1,000 ML 1000 ML IV (02:09)
[2019-08-08 02:16] LABS: AST(SGOT) 16 U/L (15-37); Alanine Aminotransfer ALT/SGPT 24 U/L (16-61); Albumin, Serum 4.1 g/dL (3.2-5.0); Alkaline Phosphatase 76 U/L (45-117); Anion Gap 9 (5-15); BUN 10 mg/dL (7-18); BUN/Creat Ratio 8.2 RATIO (10-20); Bilirubin, Direct 0.27 mg/dL (0.00-0.30); Calcium,Total 9.5 mg/dL (8.5-10.1); Chloride 107 mmol/L (98-107); Creatinine, Serum 1.22 mg/dL (0.70-1.30); EST Glomerular Filtration Rate 67 mL/min (>60); Est Glom Filt Rate - Afr Amer 81 mL/min (>60); Estimated Creatinine Clearance 76.46 ml/min; Globulin 4.2 g/dL (2.2-4.2); Glucose 132 mg/dL (74-106); Lipase 67 U/L (73-393); Potassium 4.2 mmol/L (3.5-5.1); Protein, Total 8.3 g/dL (6.4-8.2); Sodium Level 138 mmol/L (136-145)
--- NOTE | 2019-08-08 04:38 | PCM.HP.STD ---
Problem List (1) SBO (small bowel obstruction) Status: Acute (2) GERD (gastroesophageal reflux disease) Status: Chronic Qualifiers: Esophagitis presence: esophagitis presence not specified Qualified Code(s): K21.9 - Gastro-esophageal reflux disease without esophagitis (3) Crohn's disease of small and large intestines Status: Chronic Qualifiers: Digestive disease complication type: unspecified complication Qualified Code(s): K50.819 - Crohn's disease of both small and large intestine with unspecified complications (4) HTN (hypertension) Status: Chronic Qualifiers: Hypertension type: essential hypertension Qualified Code(s): I10 - Essential (primary) hypertension (5) Anxiety and depression Status: Chronic History of Present Illness Date of Admission: 08/08/19 Chief Complaint: Abdominal pain The patient is a 48 y/o M w/ PMHx: Crohn's disease not on any oral regimen, HTN, Hx prior SBO who presents to the [facility] ED on 08/08/19 noting to have onset intermittent, waxing and waning, RLE primarily, severe 10/10 stabbing abdominal pain with nausea with dry heaves with mild abdominal distention with last BM day prior to ED presentation starting at ~ 1-2 pm on 08/07/19, not improving with history of remote ileal resection with reanastomosis prompting ED presentation. Patient declined NG placement and notes he has not required one prior. Work-up in the ED included T 98, heart rate 79, BP 144/108, RR 16, RR 95% on RA, CBC w/ WBC 15 with a leukocytosis noted during prior evaluations as well, Hgb 16.5, Plts 286 with L shift, CMP with glucose 132, total bilirubin 1.40, lipase 67 otherwise unremarkable, CT A/P with findings suggestive of SBO with transition at the anastomosis with the colon, non-onbstructing left-sided ranl calculus. In the ED patient ministered Toradol 30 mg IV x1 as well as Zofran and normal saline. Given patient history Dr. Morris was consulted and amenable to evaluating the patient as a provider contracting consultant. Dr. Morris was amenable to deferring NG tube placement. Upon ED evaluation patient comfortable, notes pain improving. Past Medical History Past Medical History (Chronic Problems): Chronic Problems GERD (gastroesophageal reflux disease) (Chronic) Anxiety and depression (Chronic) HTN (hypertension) (Chronic) Crohn's disease of small and large intestines (Chronic) Allergies prednisone Allergy (Verified 08/08/19 01:44) Vomiting diphenhydramine HCl [From Benadryl] Adverse Reaction (Verified 08/08/19 01:44) Other Home Medications: Ambulatory Orders Medication Instructions Recorded Diltiazem HCl [Cartia Xt] 240 mg PO DAILY 12/18/17 Oxycodone HCl/Acetaminophen 1 tab PO Q4H PRN PRN 7 Days #40 tab 12/18/17 [Percocet 10-325 mg Tablet] Potassium Chloride 10 meq PO BID 12/18/17 Sertraline HCl [Zoloft] 100 mg PO DAILY 12/18/17 Metoprolol Succinate [Toprol Xl] 25 mg PO DAILY 08/08/19 Surgical History: - - ileocecal resection for active Crohn's disease-[facility]-, tonsillectomy. Psychiatric History: Anxiety, Depression Lives: With Family Smoking Status: Never smoker Alcohol: None Drugs: None - *Family History Maternal History Items: Diabetes, Dementia - Parkinson's disease., High Cholesterol, Heart Disease, Hypertension Paternal History Items: Diabetes, High Cholesterol, Heart Disease, Hypertension Review of Systems Constitutional: Reports: Anorexia, Malaise, Weakness, Fatigue. Denies: Chills, Fever, Weight Change HEENT: Denies: Head Aches, Sinus Congestion, Sinus Drainage Cardiovascular: Denies: Chest Pain, Palpitations Respiratory: Denies: Cough, Shortness of breath at rest, Sputum production Gastrointestinal: Reports: Abdominal Pain, Diarrhea, Nausea, Vomiting Genitourinary: Denies: Dysuria Musculoskeletal: Denies: Joint Pain, Joint Tenderness Skin: Denies: Rash, Wounds Neurological: Denies: Numbness, Tingling, Focal weakness Psychiatric: Reports: Anxiety, Depression. Denies: Homicidal Ideations, Suicidal Ideations Hematologic/ Lymphatic: Denies: Easy Bruising, Easy Bleeding VTE Information - Inpt Only VTE Present on Admission: No VTE Mechan Device Prophylaxis: SCD's VTE Pharm Prophylaxis ordered?: Yes Patient Problems: Active and Suspected Problems SBO (small bowel obstruction) (Acute) Partial small bowel obstruction (Acute) Subjective: Laying in the ED bed, fatigued appearance, no acute distress. Objective: Physical Examination: General: awake, alert, oriented x 3 and cooperative, seated upright in the ED bed in no apparent distress. Skin: normal color, turgor, no icterus, cyanosis. HEENT: AT/NC, EOMI, PERRLA, moderately dry MM, no carotid bruits or JVD noted. Lungs: CTA bilaterally, moderate effort, mild decrease BL bases, no rales, ronchi or wheezing. Heart: Regular rate and rhythm; no gallop, rub audible. Abdomen: soft, obese, tenderness to palpation primarily in the right lower quadrant, mild voluntary guarding, no significant rebound, hypoactive near absent bowel sounds, no HSM although difficult evaluation given acute pain. Extremities: no cyanosis, clubbing, or edema. Neurological: patient awake, alert, oriented x 3; cognitive function intact; pupils equally reactive to light and accomodation; cranial nerves II-XII grossly normal, moving all 4 extremities, no focal deficits, strength moderately global decrease secondary to acute presentation. Psychiatric: affect appears fatigued, no acute evidence of depressive or anxiety feelings. - Physical Exam Vitals/I&O's: Vital Signs Temp Pulse Resp BP Pulse Ox 98.0 F 75 14 124/75 H 94 08/08/19 01:46 08/08/19 04:30 08/08/19 04:30 08/08/19 04:30 08/08/19 04:30 Oxygen Delivery Method Room Air Weight: 215 lb 6.266 oz Body Mass Index (BMI) 30.9 Intake and Output for Last 24 Hours 08/06/19 08/07/19 08/08/19 23:59 23:59 23:59 Intake Total 1000 / 1000 Balance 1000 / 1000 Laboratory Results 08/08/19 01:45: WBC 15.0 H, RBC 5.59, Hgb 16.5, Hct 50.1, MCV 89.6, MCH 29.5, MCHC 32.9, RDW Std Deviation 42.7, RDW Coeff of Izaiah 13.0, Plt Count 286, MPV 9.1, Immature Gran % (Auto) 0.400, Neut % (Auto) 76.8 H, Lymph % (Auto) 16.6 L, Bond % (Auto) 4.6, Eos % (Auto) 1.3, Baso % (Auto) 0.3, Absolute Neuts (auto) 11.5 H, Absolute Lymphs (auto) 2.48, Nucleated RBC % 0 08/08/19 01:45: Sodium 138, Potassium 4.2, Chloride 107, Carbon Dioxide 22.0, Anion Gap 9, BUN 10, Creatinine 1.22, Estim Creat Clear Calc 76.46, Est GFR (MDRD) Af Amer 81, Est GFR (MDRD) Non-Af 67, BUN/Creatinine Ratio 8.2 L, Glucose 132 H, Calcium 9.5, Total Bilirubin 1.40 H, Direct Bilirubin 0.27, AST 16, ALT 24, Alkaline Phosphatase 76, Total Protein 8.3 H, Albumin 4.1, Globulin 4.2, Lipase 67 L Assessment/Plan All Active Problems SBO (small bowel obstruction) (Acute) Partial small bowel obstruction (Acute) Diverticulitis (Ruled-out) The patient is a 48 y/o M w/ PMHx: Crohn's disease not on any oral regimen, HTN, Hx prior SBO who presents to the [facility] ED on 08/08/19 noting to have onset intermittent, waxing and waning, RLE primarily, severe 10/10 stabbing abdominal pain with nausea with dry heaves with mild abdominal distention with last BM day prior to ED presentation starting at ~ 1-2 pm on 08/07/19, not improving with history of remote ileal resection with reanastomosis prompting ED presentation. Patient declined NG placement and notes he has not required one prior. 1. Abdominal pain, nausea, emesis w/ SBO: In the ED work-up included CT A/P with findings suggestive of SBO with transition at the anastomosis with the colon, non-onbstructing left-sided ranl calculus, CBC w/ WBC 15 with left shift however similar to prior presentations. Will admit to medical surgical floor, maintain on IVFs, defer NG tube and less at onset intractable nausea and emesis of which general surgery is aware, strict I&Os, IV pain/anti-emetics PRN, serial KUB as needed to montior bowel function, Famotidine IV, maintain NPO on bowel rest. General surgery, Dr. Morris consulted and will evaluate patient. 2. Crohn's disease: Status post remote ileal resection with reanastomosis, no obvious evidence of acute flare, chronic leukocytosis upon presentations with SBO as noted, trend CBC, not on any regimen for his Crohn's disease, encourage continued follow-up outpatient with gastroenterology. We will continue to follow and if any concern may consider initiation of Solu-Medrol. 3. Hypertension: Continue home regimen including metoprolol, diltiazem, PRN hydralazine. 4. Anxiety and depression: We will continue patient home Zoloft regimen. 5. GERD: We will maintain on IV famotidine as noted. 6. DVT prophylaxis: SCDs, Lovenox. Code Visit Inpatient E&M: 75991 Init Hosp L3
[2019-08-08] MEDS: Famotidine 200 MG/20 ML MDV 20 MG in 0.9% Normal Saline (Pres. free 8 ML 300 MG IV (06:15)
[2019-08-08] MEDS: 0.9% Normal Saline 1,000 ML 125 ML IV (06:15)
[2019-08-08 07:21] LABS: Absolute Lymphocyte Count 1.96 X10^3/uL (0.83-4.51); Absolute Neutrophil Count 7.8 X10^3/uL (2.0-7.7); Basophil# 0.02 X10^3/uL; Basophil% 0.2 % (0-1); Eosinophil# 0.07 X10^3/uL; Eosinophils% 0.7 % (0-5); Hematocrit 44.3 % (40-54); Hemoglobin 14.5 g/dL (13.0-16.5); Lymphocyte # 1.96 X10^3/ul (4.0); Lymphocyte % 18.3 % (19-41); Mean Corp Hgb Conc 32.7 g/dL (32-36); Mean Corpuscular Hgb 29.9 pg (27.0-32.0); Mean Corpuscular Volume 91.3 fL (80-94); Monocyte# 0.87 X10^3/uL; Monocyte% 8.1 % (0-10); NRBC Flagged by Analyzer 0 % (0-5); Neutrophil # 7.78 X10^3/uL (2.7-7.7); Neutrophil % 72.5 % (47-70); Platelet Count 238 K/mm3 (150-450); RBC Distribution Width CV 13.2 % (11.6-14.6); RBC Distribution Width SD 44.1 fl (35.1-43.9); Red Blood Count 4.85 M/mm3 (4.6-6.2); White Blood Count 10.7 K/mm3 (4.4-11.0)
[2019-08-08 08:21] LABS: BUN 8 mg/dL (7-18); Creatinine, Serum 0.92 mg/dL (0.70-1.30); Estimated Creatinine Clearance 101.39 ml/min; Glucose 101 mg/dL (74-106)
[2019-08-08 08:22] LABS: Anion Gap 6 (5-15); BUN/Creat Ratio 8.7 RATIO (10-20); Calcium,Total 8.5 mg/dL (8.5-10.1); Chloride 111 mmol/L (98-107); EST Glomerular Filtration Rate 93 mL/min (>60); Est Glom Filt Rate - Afr Amer 113 mL/min (>60); Sodium Level 139 mmol/L (136-145)
[2019-08-08] MEDS: Metoprolol(XL)Succ 25 MG Tablet PO (08:37)
--- NOTE | 2019-08-08 08:46 | PCM.CONS.B ---
- Consult Date of Consult: 08/08/19 - Reason for Consult CC: abdominal pain HISTORY OF PRESENT ILLNESS: 48 y/o WM with known Crohn's disease, taking no anti-inflammatory medications for Crohn's - presents with symptoms of bowel obstruction. He has had multiple episodes in the past and is familiar with the sign/symptoms of this. He there fore presented to [facility] ED last night. Had severe sharp pains of lower abdomen beginning yesterday with obstipation and constipation. Noted to have elevated WBC of 15K Patient has had previous bowel resection in the . 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 Last episode of partial bowel obstruction - November [address] scan 08/08/2019 FINDINGS: There is a nonobstructing calculus left renal collecting system measuring about 3 mm in size. There is dilated small bowel with maximum transverse dimension of approximately 3.3 cm. The small bowel is fluid-filled. There appears to have been partial resection of the right colon with surgical sutures near the hepatic flexure. Stool is visible primarily within the hepatic flexure. Most of the transverse colon and descending colon are not distended which give the appearance of thickened aceves. There is non-visualization of the appendix. Past Medical History Crohn's disease Hypertension Allergies prednisone Allergy (Verified 12/18/17 00:02) Vomiting diphenhydramine HCl [From Benadryl] Adverse Reaction (Verified 12/18/17 00:02) Home Medications: Diltiazem HCl [Cartia Xt] 240 mg PO DAILY 12/18/17 Potassium Chloride 10 meq PO BID 12/18/17 Sertraline HCl [Zoloft] 50 mg PO DAILY 12/18/17 Surgical History: - - ileocecal resection for active Crohn's disease-[facility]- Psychiatric History: Anxiety Lives: Alone Smoking Status: Never smoker Alcohol: None Drugs: None Review of Systems Constitutional: Denies: fevers HEENT: Denies: infections Cardiovascular: Denies: Chest Pain, Palpitations Respiratory: Denies: coughing up blood, SOB Gastrointestinal: see HPI Genitourinary: Denies: Dysuria Musculoskeletal: Denies: Joint Pain, Joint Tenderness Skin: Denies: Wounds Neurological: Denies: stroke symptoms Psychiatric: Denies: hallucinations Hematologic/ Lymphatic: Denies: spontaneous/prolonged bleeding PHYSICAL EXAMINATION Vital Signs Temp Pulse Resp BP Pulse Ox 98.4 F 71 16 114/72 94 RA HEENT without evidence of trauma or infection Lungs - normal air movement Abdomen is soft and benign Extremities without edema Neuro - non focal Psych - calm and appropriate IMPRESSION: partial bowel obstruction due to flare up of Crohn's disease - resolved DISCUSSION/PLAN: At this point, patient is passing flatus and had small bowel movements. He also feels resumption of peristalsis. Still feels sore but much improved since last night. Stable to d/c to home, patient will seek GI consultation from his previous GI physician in [place].
--- NOTE | 2019-08-08 11:15 | DCINST_ITS ---
- Discharge Diagnoses Current Active Problems: Current Active and Chronic Problems SBO (small bowel obstruction) (Acute) GERD (gastroesophageal reflux disease) (Chronic) Anxiety and depression (Chronic) Partial small bowel obstruction (Acute) You will use the following diet at home:: No restrictions Your food should be the consistency of: Regular Your liquids should be the consistency of: Regular/Thin Discharge Activity: Return to Normal Activity Additional Instructions: Take Entocort or Prednisone, not both Allergies/Adverse Reactions: Allergies prednisone Allergy (Verified 08/08/19 01:44) Vomiting diphenhydramine HCl [From Benadryl] Adverse Reaction (Verified 08/08/19 01:44) Other Medications to take at Discharge Diltiazem HCl [Cartia Xt] 240 mg PO QHS 12/18/17 Potassium Chloride 10 meq PO DAILY 12/18/17 Sertraline HCl [Zoloft] 50 mg PO QHS 12/18/17 Budesonide [Entocort EC] 9 mg PO DAILY #90 capdr...er 08/08/19 Metoprolol Succinate [Toprol Xl] 12.5 mg PO BID #1 08/08/19 Prednisone [Deltasone] 20 mg PO UD #23 tab 08/08/19 The following prescriptions were given: Prednisone [Deltasone] 20 mg PO UD #23 tab Transmission Status: Pending to [facility] Budesonide [Entocort EC] 9 mg PO DAILY #90 capdr...er Transmission Status: Pending to [facility] Metoprolol Succinate [Toprol Xl] 12.5 mg PO BID #1 Primary Care Physician: Raul Cox III, MD [Primary Care Provider] - Please follow up with your Primary Care Physician in: in 2-3 weeks Test Results: Test results from this visit will be discussed in further detail at your follow- up appointment, if applicable.
--- NOTE | 2019-08-08 12:23 | NURSING ---
Student documentation reviewed.
--- NOTE | 2019-08-09 19:15 | PCM.DC.SUM ---
Discharge Date and Diagnosis Date of Admission: 08/08/19 Date of Discharge: 08/08/19 - Primary Discharge Diagnosis #1 transient partial small bowel obstruction due to flareup of Crohn's disease #2 flareup of Crohn's disease #3 essential hypertension - Secondary Discharge Diagnosis Chronic Problems GERD (gastroesophageal reflux disease) (Chronic) Anxiety and depression (Chronic) HTN (hypertension) (Chronic) Crohn's disease of small and large intestines (Chronic) Hospital Course and Treatment Operations: None Procedures: None Summary of Care Provided: The patient is a 48 year old M seen in the emergency room at [facility] with complaints of right-sided abdominal pain and cramping. He has a history of Crohn's disease which is not under medical treatment. Patient was given IV fluids, Toradol, and Zofran, CT of the abdomen and pelvis was obtained which showed a partial small bowel obstruction, labs showed an elevated white blood cell count at 15,000. Patient was placed into observation status on [facility], he was given IV fluids and seen in consultation by general surgery, by the time general surgery evaluated the patient in the clergy member on 08/08/2019, the patient felt better and was able to intake liquids without problems. General surgery felt that the patient could be discharged home. Had a long discussion with the patient concerning taking medications for his Crohn's disease, he agreed to try Entocort and if this was too much money, he was given an additional prescription for tapering prednisone by me. He was seen and examined on 08/08/2019: On examination he appeared in good health and spirits. Vital signs as documented. Skin warm and dry and without overt rashes. Neck without JVD. Lungs clear. Heart exam notable for regular rhythm, normal sounds and absence of murmurs, rubs or gallops. Abdomen unremarkable and without evidence of organomegaly, masses, or abdominal aortic enlargement. Extremities nonedematous. Neuro: Cranial nerves II through XII are grossly intact, no focal motor deficits were noted, sensation to light touch and pinprick intact. Psych: Patient is alert and oriented x3, he does not appear anxious or depressed Patient was discharged home in stable condition on 08/08/2019 - Physical Exam Vitals/I&O's: Vital Signs Temp Pulse Resp BP Pulse Ox 98.4 F 71 16 137/84 H 96 08/08/19 11:20 08/08/19 11:20 08/08/19 11:20 08/08/19 11:20 08/08/19 11:20 Oxygen Delivery Method Room Air Weight: 96.3 kg Body Mass Index (BMI) 30.4 Intake and Output for Last 24 Hours 08/07/19 08/08/19 08/09/19 23:59 23:59 23:59 Intake Total 1663.33 / 1663.33 Balance 1663.33 / 1663.33 Discharge Activity: Return to Normal Activity Home Medications: Medications to take at Discharge Diltiazem HCl [Cartia Xt] 240 mg PO QHS 12/18/17 Potassium Chloride 10 meq PO DAILY 12/18/17 Sertraline HCl [Zoloft] 50 mg PO QHS 12/18/17 Budesonide [Entocort EC] 9 mg PO DAILY #90 capdr...er 08/08/19 Metoprolol Succinate [Toprol Xl] 12.5 mg PO BID #1 08/08/19 Prednisone [Deltasone] 20 mg PO UD #23 tab 08/08/19 Following Prescrptions Were Given to Patient: Prednisone [Deltasone] 20 mg PO UD #23 tab [facility] Budesonide [Entocort EC] 9 mg PO DAILY #90 capdr...er Transmission Status: Sent to [facility] Metoprolol Succinate [Toprol Xl] 12.5 mg PO BID #1 Primary Care Physician: Raul Cox III, MD [Primary Care Provider] - Please follow up with your Primary Care Physician in: in 2-3 weeks Disposition: Home Minutes spent on discharge:: 30 Patient Condition:: Stable Medical Necessity - Tobacco Use Smoking Status: Never smoker Meaningful Use Info Meaningful Use Diagnoses (Choose all that apply): None applicable Code Visit OBSV E&M: 54930 Observ/hosp same date L3
== END 2019-08-08 11:40 | disposition home or self-care (01) ==
LOC: ED 04:38 → MS3 04:50
PROVIDERS: Admitting Provider Family Medicine; Emergency Provider Emergency Medicine; PCP Family Medicine; Visit Provider Internal Medicine
DX: K50.012 Crohn's disease of small intestine with intestinal obstruction (principal); I10 Essential (primary) hypertension; K21.9 Gastro-esophageal reflux disease without esophagitis; F41.9 Anxiety disorder, unspecified; F32.9 Major depressive disorder, single episode, unspecified; Z79.899 Other long term (current) drug therapy
CPT/HCPCS: 36415; 74176; 80048; 80076; 83690; 85025; 96361; 96374; 96375; 99218; 99284; J7030; A4216; G0378; J2405; J3490

== ENCOUNTER → 2020-01-04 12:30 | Outpatient (CLI) | payer OTHER, SELFPAY ==
[2019-08-08 05:40] VITALS: BMI 30.4
[2020-01-04 13:06] LABS: CRP < 2.90 mg/L (0.0-3.0); Lipase 98 U/L (73-393)
[2020-01-04 13:20] LABS: Erythrocyte Sedimentation Rate 33 mm/hr (0-15)
== END ==
PROVIDERS: PCP Family Medicine; Referring Provider Nurse Practitioner Family; Visit Provider Nurse Practitioner Family
DX: R10.30 Lower abdominal pain, unspecified (principal); K50.819 Crohn's disease of both small and large intestine with unspecified complications
CPT/HCPCS: 83690; 85652; 86140

== ENCOUNTER 2024-08-09 23:54 | Emergency (ER) | payer OTHER, SELFPAY ==
[2024-08-09 23:56] VITALS: BP 163/109; PULSE 80; RESP 18; TEMP 36.7; O2SAT 97; BMI 32.5
--- NOTE | 2024-08-10 00:16 | EDS_ITS ---
HPI History of Present Illness Chief Complaint: Upper Extremity Injury Narrative Narrative: 53-year-old male, past medical history of Crohn disease, [id number] was at work tonight when he sustained an injury to his left hand and wrist/forearm. He states that he had put up a vital role that they were trying to cut. As he was trying to reach for it and pull on the final to get it come off the role, his boss came by and he yanked a piece of vinyl quickly which subsequently cr ushed his left hand and distal forearm in between the rolls of vinyl that way a few 100 pounds each. He was able to remove his left hand quickly, but it had been crushed between the 2 rolls. He denies other injury. He now has pain throughout his left hand and fingers and up to his wrist. He denies other injury. [facility] Medical History Crohn disease Irregular heart beat Home Medications ?Medication ?Instructions ?Recorded ?Last Taken ?Type sertraline 100 mg tablet (Zoloft) 100 mg PO QHS Anxiet y 12/18/17 08/07/19 22:00 History 50 mg diltiazem HCl 180 mg 180 mg PO DAILY 08/10/24 Unk nown History capsule,extended release 24 hr Allergy/AdvReac Type Severity Reaction Status Date / Time prednisone Allergy Vomiting Verified 08/09/24 23:56 diphenhydramine HCl (From AdvReac Other Verified 08/09/24 23:56 Benadryl) Surgical History History of bowel resection Social History Smoking Status: Never smoker ROS ROS ED ROS Narrative Review of systems positive for crush injury to left hand and wrist. Pain worse with movement of fingers and wrist. Uninjured at elbow and above. Denies other injuries. EXAM Physical Exam Narrative Exam Narrative: GCS 15. ABCs intact. Cardiovascular examination regular rate and rhythm. Lungs clear to auscultation bilaterally. Abdomen is soft and nontender with positive bowel sounds. Inspection of the left hand and wrist does show diffuse tenderness to palpation throughout the hand. Good capillary refill of fingers. Able to oppose thumb. Pain elicited with movement of fingers. Palpable radial pulse. Uninjured at elbow and above. Const Vital Signs: 08/09/24 23:56 Temperature 98.1 F Temperature Source Oral Pulse Rate 80 Respiratory Rate 18 Blood Pressure 163/109 H Blood Pressure Mean 127 Pulse Ox 97 Oxygen Delivery Method Room Air MDM MDM MDM Narrative Medical decision making narrative: Differential diagnosis includes but not limited to crush injury of hand and wrist versus contusion versus fracture. Patient requested Tylenol for analgesia. X-rays were obtained of the left hand in 3 views as well as left forearm and 2 views and interpreted by myself independently. I see no evidence of acute fracture of the left hand, nor do I see on my independent interpretation of fracture of the left forearm. My review the radiology report which confirms my independent interpretation. At this point in time, he was placed in an Edvin wrap and told to continue ice and elevation at home. He will follow-up with the now clinic or a [facility] provider of his choice. He was given a note to be off work for the rest of his shift today, the day of his injury, and he does not return until Tuesday with limitations, no use of his left hand for 1 week or until cleared by his [facility] provider. Return instructions to the emergency department were reviewed. Disposition is discharged home in stable condition. History & Record Review Discussion w/independent historian: Patient Discharge Plan Triage Chief Complaint: Upper Extremity Injury ED Provider: Joshua Werner Dx/Rx/DC Orders Clinical Impression: Contusion of hand, left, Crushing injury of hand, left, Crushing injury of forearm, left Instructions: ED Hand Contusion, ED Contusion, Upper Extremity, ED Crush Injury, Hand Prescriptions: No Action sertraline [Zoloft] 100 MG tablet 100 mg PO QHS diltiazem HCl 180 mg capsule,extended release 24hr 180 mg PO DAILY Primary Care Provider: Mara Gutierrez NP Referrals: Care Physician,No Primary [Non-Staff] - Activity Restrictions/Additional Instructions: Follow-up with the now clinic or a [facility] provider of your choice. [facility] can be reached at [phone]. Continue ice and elevation of your hand at home. Return with new or worsening symptoms. Print Language: Dominican Disposition Disposition: Home, Self Care
--- NOTE | 2024-08-10 00:20 | ED.RN ---
Pt states he spoke with his account manager b2b, Konrad, and per the patient Konrad said he didn't think we did drug testing.
[2024-08-10] MEDS: Acetaminophen 500 MG Tablet 1000 MG PO (00:21)
--- NOTE | 2024-08-10 00:38 | RAD_ITS ---
PROCEDURE: LEFT FOREARM 2 VIEWS REASON FOR EXAM: Pain. Trauma. TECHNIQUE: Two views of the left forearm were obtained. COMPARISON: None. FINDINGS: No acute fracture or dislocation is present. Joint spacing is preserved. No osseous erosive changes or periosteal reaction is present. Visualized soft tissues are unremarkable. RAD/Forearm 2 Views IMPRESSION: No acute fracture. Reading Location: [facility]
--- NOTE | 2024-08-10 00:38 | RAD_ITS ---
PROCEDURE: LEFT HAND MIN 3 VIEWS REASON FOR EXAM: Pain. Injury. TECHNIQUE: 3 views of the left hand COMPARISON: None FINDINGS: No acute fracture or dislocation is identified. No osseous erosive changes or periosteal reaction is present. Visualized soft tissues are unremarkable. RAD/Hand Min 3 Views IMPRESSION: No acute fracture. Reading Location: [facility]
[2024-08-10 01:25] VITALS: BP 168/88; PULSE 100; RESP 18; TEMP 36.3; O2SAT 98
== END 2024-08-10 01:26 | disposition home or self-care (01) ==
PROVIDERS: Emergency Provider Emergency Medicine; PCP Registered Nurse; Visit Provider Emergency Medicine
DX: S60.222A Contusion of left hand, initial encounter (principal); K50.90 Crohn's disease, unspecified, without complications; W23.0XXA Caught, crushed, jammed, or pinched between moving objects, initial encounter; S57.82XA Crushing injury of left forearm, initial encounter
CPT/HCPCS: 73090; 73130; 99282